=== PATIENT | male | born 1990 ===

== ENCOUNTER 2024-12-04 16:56 | Emergency (ER) | payer OTHER ==
[~2024-12-04] VITALS: Ht 177.8 cm; Wt 99.8 kg
[2024-12-04] MEDS ORDERED: ChlordiazePOXIDE 25 MG Cap PO ONE (18:20)
[2024-12-04] MEDS ORDERED: CHLO25 PO (18:24)
== END 2024-12-04 18:37 | disposition home or self-care (01) ==
LOC: ER 16:56
DX: F10.139 Alcohol abuse with withdrawal, unspecified (principal); Z79.899 Other long term (current) drug therapy
CPT/HCPCS: 99284; A9270

== ENCOUNTER 2025-09-10 14:29 | Inpatient (IN) | payer OTHER ==
[~2025-09-10] VITALS: Ht 177.8 cm; Wt 92.2 kg
[~2025-09-10 14:29] MED LIST: CHLO25 PO
[2025-09-10 15:57] LABS: BASOPHILS ABSOLUTE AUTO 0.06 K/mm3 (0.00-0.23); BASOPHILS PERCENT AUTO 1 % (0-2); EOSINOPHILS ABSOLUTE AUTO 0.10 K/mm3 (0.00-0.68); EOSINOPHILS PERCENT AUTO 2 % (0-6); Hematocrit 20.4 % (37.0-53.0); Hemoglobin 7.5 g/dL (13.5-17.5); IMMATURE GRAN ABSOLUTE AUTO 0.13 K/mm3 (0.00-0.10); IMMATURE GRAN PERCENT AUTO 2 % (0-1); LYMPHOCYTES ABSOLUTE AUTO 0.66 K/mm3 (0.84-5.20); LYMPHOCYTES PERCENT AUTO 10 % (21-46); MONOCYTES ABSOLUTE AUTO 0.62 K/mm3 (0.16-1.47); MONOCYTES PERCENT AUTO 10 % (4-13); Mean Corpuscular HGB Conc 36.8 g/dL (31.5-36.5); Mean Corpuscular Volume 106 fL (80-100); NEUTROPHILS ABSOLUTE AUTO 4.95 K/mm3 (1.96-9.15); NEUTROPHILS PERCENT AUTO 76 % (41-73); NRBC ABSOLUTE 0.03 K/mm3 (0.00-0.02); NRBC Auto 0.5 /100 WBC (0.0-0.2); Platelet Count 76 K/mm3 (150-400); RDW Coefficient Variation 16.2 % (11.7-14.2); RDW Standard Deviation 62.4 fL (35.1-46.3)
[2025-09-10 16:27] LABS: Prothrombin Time Results 20.5 Sec (9.7-11.5)
[2025-09-10 17:22] LABS: Alanine Aminotransfer (ALT/SGP 26.0 U/L (12-78); Albumin, Blood 2.0 g/dL (3.4-5.0); Albumin/Globulin Ratio 0.4 (0.8-1.8); Anion Gap 9.0 mmol/L (3-11); Aspartate Aminotrans (AST/SGOT 109.0 U/L (12-37); Bilirubin, Total 34.8 mg/dL (0.1-1.0); Blood Urea Nitrogen 13.0 mg/dL (8-24); CO2, Blood 27.0 mmol/L (21-32); Calcium, Blood 7.9 mg/dL (8.5-10.1); Chloride, Blood 94.0 mmol/L (98-108); Creatinine, Blood 0.79 mg/dL (0.60-1.20); Globulin, Blood 4.8 g/dL (2.2-4.0); Glucose, Blood 98.0 mg/dL (70-99); Potassium, Blood 2.9 mmol/L (3.5-5.5); Sodium, Blood 127.0 mmol/L (136-145); Total Protein, Blood 6.8 g/dL (6.4-8.2)
[2025-09-10] MEDS ORDERED: Ondansetron HCl 2 MG / ML 2ML Vial IV PRN (19:30)
[2025-09-10] MEDS ORDERED: FLU VACC TS2025-26(6MOS UP)/PF 45 MCG/0.5 ML SYRINGE IM SCH (19:30)
[2025-09-10] MEDS ORDERED: NS 1,000 ML IV SCH (20:20)
[2025-09-10] MEDS ORDERED: LORazepam 2 MG/ML 1ML Injection IV PRN (20:25)
--- NOTE | 2025-09-10 20:50 | NUR ---
TOOK REPORT FROM ED RN @ 2044.
[2025-09-10 21:01] LABS: Ferritin, Serum 1168.0 ng/mL (26-388); Magnesium, Blood 1.8 mg/dL (1.6-2.4); Total Iron Binding Capacity 95.0 ug/dL (250-450)
[2025-09-10 21:14] VITALS: BP 111/62
[2025-09-11] VITALS (10 sets, daily range): BP systolic 110–126; BP diastolic 51–69
[2025-09-11 04:43] LABS: BASOPHILS ABSOLUTE AUTO 0.06 K/mm3 (0.00-0.23); BASOPHILS PERCENT AUTO 1 % (0-2); EOSINOPHILS ABSOLUTE AUTO 0.11 K/mm3 (0.00-0.68); EOSINOPHILS PERCENT AUTO 2 % (0-6); Hematocrit 18.9 % (37.0-53.0); Hemoglobin 6.8 g/dL (13.5-17.5); IMMATURE GRAN ABSOLUTE AUTO 0.07 K/mm3 (0.00-0.10); IMMATURE GRAN PERCENT AUTO 1 % (0-1); LYMPHOCYTES ABSOLUTE AUTO 0.62 K/mm3 (0.84-5.20); LYMPHOCYTES PERCENT AUTO 13 % (21-46); MONOCYTES ABSOLUTE AUTO 0.58 K/mm3 (0.16-1.47); MONOCYTES PERCENT AUTO 12 % (4-13); Mean Corpuscular HGB Conc 36.0 g/dL (31.5-36.5); Mean Corpuscular Volume 108 fL (80-100); NEUTROPHILS ABSOLUTE AUTO 3.43 K/mm3 (1.96-9.15); NEUTROPHILS PERCENT AUTO 71 % (41-73); NRBC ABSOLUTE 0.02 K/mm3 (0.00-0.02); NRBC Auto 0.4 /100 WBC (0.0-0.2); Platelet Count 76 K/mm3 (150-400); RDW Coefficient Variation 16.3 % (11.7-14.2); RDW Standard Deviation 63.7 fL (35.1-46.3)
[2025-09-11 04:53] LABS: Prothrombin Time Results 19.3 Sec (9.7-11.5)
--- NOTE | 2025-09-11 05:15 | NUR ---
PT HGB 6.8 THIS AM. HOSPITALIST NOTIFIED AND ORDER FOR 1 UNIT PRBC ORDERED AND HOSPITALIST COMING TO UNIT TO SIGN BLOOD CONSENT FORM WITH PT.
[2025-09-11 05:27] LABS: Magnesium, Blood 1.7 mg/dL (1.6-2.4)
[2025-09-11] MEDS ORDERED: NS 500 ML IV SCH (05:35)
--- NOTE | 2025-09-11 05:46 | NUR ---
SHIFT SUMMARY NOC PT A/O X 4. PLEASANT AND COOPERATIVE WITH CARE. VSS. ADMIT FOR ALCOHOLIC CIRROHSIS AND WITHDRAWAL, CIWA 2 FOR NOTED BUE TREMORS. PT REPORTS LAST DRINK WAS 09/09/25 AND DRINKS 7-8 BEERS PER NIGHT SINCE IN TEENS. PT VERY JAUNDICED IN APPEARENCE WITH SCLERA EXTREMELY YELLOW NOTED IN APPEARANCE. PT POSTASSIUM 2.9 AND SODIUM 127 YESTERDAY WITH CMP PENDING THIS AM. HBG 6.8 THIS AM,HOSPITALIST NOTIFIED AND 1 UNIT PRBC ORDERED TO TRANSFUSE. PT HAS IVF INFUSING PER EMAR. PT CURRENTLY RESTING WITH BED IN LOWEST POSITION, AND CALL LIGHT WITHIN REACH.
[2025-09-11 05:59] LABS: Alanine Aminotransfer (ALT/SGP 23.0 U/L (12-78); Albumin, Blood 1.8 g/dL (3.4-5.0); Albumin/Globulin Ratio 0.4 (0.8-1.8); Anion Gap 9.0 mmol/L (3-11); Aspartate Aminotrans (AST/SGOT 88.0 U/L (12-37); Bilirubin, Total 30.0 mg/dL (0.1-1.0); Blood Urea Nitrogen 13.0 mg/dL (8-24); CO2, Blood 27.0 mmol/L (21-32); Calcium, Blood 7.2 mg/dL (8.5-10.1); Chloride, Blood 95.0 mmol/L (98-108); Creatinine, Blood 0.82 mg/dL (0.60-1.20); Globulin, Blood 4.3 g/dL (2.2-4.0); Glucose, Blood 88.0 mg/dL (70-99); Potassium, Blood 2.6 mmol/L (3.5-5.5); Sodium, Blood 128.0 mmol/L (136-145); Total Protein, Blood 6.1 g/dL (6.4-8.2)
--- NOTE | 2025-09-11 06:40 | NUR ---
PT POTASSIUM 2.6 THIS AM, HOSPITALIST NOTIFIED AND DAY MD HAD JUST PUT ORDER IN FOR 40 MEQ KCL PO X 1, AND HOSPITALIST ORDERED SECOND DOSE OF 40 MEQ KCL PO 4 HOURS FROM FIRST DOSE @ 1100.
--- NOTE | 2025-09-11 08:15 | NUR ---
PATIENT'S FATHER, LILO, CALLED FOR UPDATE. CONFIRMED FATHER IS ON [id number]. REQUESTED CALL BACK FROM BEDSIDE NURSE WITH UPDATE. BEDSIDE NURSE NOTIFIED. [phone].
[2025-09-11] MEDS ORDERED: Multivitamins 1 Tab PO SCH (09:00)
[2025-09-11] MEDS ORDERED: Folic Acid 1 MG TAB PO SCH (09:00)
[2025-09-11 12:56] LABS: Hematocrit 21.2 % (37.0-53.0); Hemoglobin 7.6 g/dL (13.5-17.5)
[2025-09-11] MEDS ORDERED: Potassium Chl 20MEQ/Water100ML 100 ML IV SCH (14:15)
[2025-09-11] MEDS ORDERED: Enoxaparin 40 MG/0.4 ML SYR SC SCH (15:00)
[2025-09-11] MEDS ORDERED: LORazepam 2 MG/ML 1ML Injection IV PRN ×3 (17:45→19:55)
--- NOTE | 2025-09-11 17:51 | NUR ---
SHIFT SUMMARY PATIENT IS A&OX2-3, DISORIENTED TO DATE AND PLACE. VERY UNSTEADY ON HIS FEET, AND HAS HAD EPISODE OF INCONTINENCE THIS SHIFT. USING THE BEDSIDE COMMODE AND SITTING TO URINATE. TREMORS AND ANXIETY AND DECREASING ORIENTATION WITH RISING CIWA SCORE UP TO 13. HE IS ON ROOM AIR AND DOES NOT HAVE TELE. PATIENT IS VERY STOIC AND THIS INTERFERES SOMEWHAT WITH SCORING A CIWA. NEW ORDERS FOR IV ATIVAN FOR CIWA SCORE OF 8-14 WERE PLACED BY THE DOC. HAVE BEEN MEDICATING PER EMAR. HE IS CURRENTLY LAYING IN BED, BED IS IN THE LOWEST POSITION, CALL LIGHT IN REACH.
[2025-09-11] MEDS ORDERED: LORazepam 2 MG/ML 1ML Injection IV ONE (19:50)
--- NOTE | 2025-09-11 20:04 | NUR ---
THIS RN NOTIFIED OF PT'S CIWA OF 15 AND TO REQUEST ORDER FOR TELE. PER PROVIDER, GIVE 2 MG IV ATIVAN NOW AND RECEIVED TELE ORDER.
--- NOTE | 2025-09-11 21:21 | NUR ---
PT WAS GIVEN CIWA AT BEDSIDE PT IS CONFUSED, TREMULOUS WITH AUDITORY AND TACTILE SENSATIONS. PT HAS UNCORRDINATED MOVEMENTS CIWA 12 1MG ATIVAN GIVEN
[2025-09-12] VITALS (8 sets, daily range): BP systolic 102–121; BP diastolic 54–76
[2025-09-12 04:51] LABS: BASOPHILS ABSOLUTE AUTO 0.11 K/mm3 (0.00-0.23); BASOPHILS PERCENT AUTO 2 % (0-2); EOSINOPHILS ABSOLUTE AUTO 0.19 K/mm3 (0.00-0.68); EOSINOPHILS PERCENT AUTO 4 % (0-6); Hematocrit 21.4 % (37.0-53.0); Hemoglobin 7.7 g/dL (13.5-17.5); IMMATURE GRAN ABSOLUTE AUTO 0.11 K/mm3 (0.00-0.10); IMMATURE GRAN PERCENT AUTO 2 % (0-1); LYMPHOCYTES ABSOLUTE AUTO 0.98 K/mm3 (0.84-5.20); LYMPHOCYTES PERCENT AUTO 20 % (21-46); MONOCYTES ABSOLUTE AUTO 0.52 K/mm3 (0.16-1.47); MONOCYTES PERCENT AUTO 10 % (4-13); Mean Corpuscular HGB Conc 36.0 g/dL (31.5-36.5); Mean Corpuscular Volume 108 fL (80-100); NEUTROPHILS ABSOLUTE AUTO 3.12 K/mm3 (1.96-9.15); NEUTROPHILS PERCENT AUTO 62 % (41-73); NRBC ABSOLUTE 0.00 K/mm3 (0.00-0.02); NRBC Auto 0.0 /100 WBC (0.0-0.2); Platelet Count 87 K/mm3 (150-400); RDW Coefficient Variation 18.1 % (11.7-14.2); RDW Standard Deviation 69.3 fL (35.1-46.3)
[2025-09-12 05:17] LABS: Magnesium, Blood 1.6 mg/dL (1.6-2.4)
[2025-09-12 05:57] LABS: Alanine Aminotransfer (ALT/SGP 22.0 U/L (12-78); Albumin, Blood 1.9 g/dL (3.4-5.0); Anion Gap 8.0 mmol/L (3-11); Aspartate Aminotrans (AST/SGOT 79.0 U/L (12-37); Blood Urea Nitrogen 11.0 mg/dL (8-24); CO2, Blood 24.0 mmol/L (21-32); Calcium, Blood 7.7 mg/dL (8.5-10.1); Chloride, Blood 103.0 mmol/L (98-108); Creatinine, Blood 0.81 mg/dL (0.60-1.20); Glucose, Blood 78.0 mg/dL (70-99); Potassium, Blood 3.7 mmol/L (3.5-5.5); Sodium, Blood 131.0 mmol/L (136-145)
[2025-09-12 06:00] LABS: Albumin/Globulin Ratio 0.4 (0.8-1.8); Bilirubin, Direct 25.2 mg/dL (0.0-0.3); Bilirubin, Indirect 5.4 mg/dL (0.1-0.7); Bilirubin, Total 30.6 mg/dL (0.1-1.0); Globulin, Blood 4.4 g/dL (2.2-4.0); Phosphorus, Blood 0.8 mg/dL (2.5-4.9); Total Protein, Blood 6.3 g/dL (6.4-8.2)
--- NOTE | 2025-09-12 06:27 | NUR ---
SHIFT SUMMARY PT A&OX2-3, CONFUSED, IMPULSIVE, HALLUCINATING, AND UNSTEADY GAIT. CIWA 15 AT BEGINNING OF THE SHIFT. CIWA REMAINS NOW AT AN 8. TELE IN PLACE, PT IN SINUS TACH T/O SHIFT. PT HAD CRITICAL PHOS LAB OF 0.8. THIS RN NOTIFIED DR. WEBER. PROVIDER TO PUT IN ORDER. K LAB AND HGB IMPROVED. CALL LIGHT WITHIN REACH AND BED ALARM ON.
[2025-09-12] MEDS ORDERED: Potassium Phosphate Dibasic 30 MM in Dextrose 5% 500 ML IV STA (06:34)
[2025-09-12] MEDS ORDERED: Folic Acid 1 MG TAB PO SCH (09:00)
[2025-09-12 15:22] LABS: Albumin, Blood 1.7 g/dL (3.4-5.0); Anion Gap 12 mmol/L (3-11); Blood Urea Nitrogen 12 mg/dL (8-24); CO2, Blood 23 mmol/L (21-32); Calcium, Blood 7.7 mg/dL (8.5-10.1); Chloride, Blood 101 mmol/L (98-108); Creatinine, Blood 0.91 mg/dL (0.60-1.20); Glucose, Blood 97 mg/dL (70-99); Phosphorus, Blood 2.7 mg/dL (2.5-4.9); Potassium, Blood 3.6 mmol/L (3.5-5.5); Sodium, Blood 132 mmol/L (136-145)
--- NOTE | 2025-09-12 17:41 | NUR ---
SHIFT SUMMARY PATIENT IS A&OX2-3, UNABLE TO STATE HIS BIRTHDAY TO THE NURSE THIS SHIFT. HE IS USING THE URINAL SITTING ON THE SIDE OF THE BED, BUT HE IS IMPULSIVE AND INSISTENT ON BEING INDEPENDENT, HE IS A FALL RISK, VERY UNSTEADY ON HIS FEET. HE IS ON ROOM AIR. TELE WITH SINUS TACHY AT 109, REPORTED T0 THIS RN BY ОЛЕГ YANG. CONTINUE TO MEDICATED FOR CIWA UP TO 15 THIS SHIFT WITH 3MG IV ATIVAN. PATIENT CONTINUES TO DENY TACTILE, OR AUDITORY OF VISUAL HALLUCINATIONS. FAMILY HAS BEEN BY TODAY AND CHW GAVE RESOURCES FOR INPATIENT TREATMENT PROGRAMS. FAMILY CURRENTLY IN THE ROOM, BED IS LOW, CALL LIGHT IS WITHIN REACH.
[2025-09-13 04:55] VITALS: BP 105/60
[2025-09-13 04:56] LABS: BASOPHILS ABSOLUTE AUTO 0.13 K/mm3 (0.00-0.23); BASOPHILS PERCENT AUTO 2 % (0-2); EOSINOPHILS ABSOLUTE AUTO 0.20 K/mm3 (0.00-0.68); EOSINOPHILS PERCENT AUTO 4 % (0-6); Hematocrit 22.1 % (37.0-53.0); Hemoglobin 8.0 g/dL (13.5-17.5); IMMATURE GRAN ABSOLUTE AUTO 0.10 K/mm3 (0.00-0.10); IMMATURE GRAN PERCENT AUTO 2 % (0-1); LYMPHOCYTES ABSOLUTE AUTO 0.97 K/mm3 (0.84-5.20); LYMPHOCYTES PERCENT AUTO 17 % (21-46); MONOCYTES ABSOLUTE AUTO 0.69 K/mm3 (0.16-1.47); MONOCYTES PERCENT AUTO 12 % (4-13); Mean Corpuscular HGB Conc 36.2 g/dL (31.5-36.5); Mean Corpuscular Volume 107 fL (80-100); NEUTROPHILS ABSOLUTE AUTO 3.67 K/mm3 (1.96-9.15); NEUTROPHILS PERCENT AUTO 64 % (41-73); NRBC ABSOLUTE 0.03 K/mm3 (0.00-0.02); NRBC Auto 0.5 /100 WBC (0.0-0.2); Platelet Count 101 K/mm3 (150-400); RDW Coefficient Variation 18.1 % (11.7-14.2); RDW Standard Deviation 69.0 fL (35.1-46.3)
[2025-09-13 05:27] LABS: Magnesium, Blood 1.7 mg/dL (1.6-2.4)
[2025-09-13 05:31] LABS: Alanine Aminotransfer (ALT/SGP 23.0 U/L (12-78); Albumin, Blood 1.8 g/dL (3.4-5.0); Albumin/Globulin Ratio 0.4 (0.8-1.8); Anion Gap 9.0 mmol/L (3-11); Aspartate Aminotrans (AST/SGOT 79.0 U/L (12-37); Bilirubin, Total 30.2 mg/dL (0.1-1.0); Blood Urea Nitrogen 11.0 mg/dL (8-24); CO2, Blood 22.0 mmol/L (21-32); Calcium, Blood 7.9 mg/dL (8.5-10.1); Chloride, Blood 102.0 mmol/L (98-108); Creatinine, Blood 0.92 mg/dL (0.60-1.20); Globulin, Blood 4.3 g/dL (2.2-4.0); Glucose, Blood 85.0 mg/dL (70-99); Phosphorus, Blood 2.0 mg/dL (2.5-4.9); Potassium, Blood 3.3 mmol/L (3.5-5.5); Sodium, Blood 130.0 mmol/L (136-145); Total Protein, Blood 6.1 g/dL (6.4-8.2)
--- NOTE | 2025-09-13 05:43 | NUR ---
SHIFT SUMMARY PATIENT IS ALERT AND ORIENTED TO SELF. PATIENT HAS HAD NO ACUTE EVENTS THIS SHIFT. VITAL SIGNS REVIEWED. PATIENT HAS BEEN MEDICATED FOR ANXIETY AND WITHDRAWALS. CIWAS HAVE REMAINED MANAGABLE WITH MEDICATION. PATIENT HAS HAD NO COMPLAINTS OF PAIN, SOB, OR NAUSE THIS SHIFT. BED IN LOCKED AND LOWEST POSITION. SEIZURE PADS IN PLACE FOR SAFETY. CALL LIGHT IN PLACE.
[2025-09-13 07:46] VITALS: BP 104/58
[2025-09-13 11:49] VITALS: BP 110/64
[2025-09-13 15:10] VITALS: BP 110/67
--- NOTE | 2025-09-13 17:03 | NUR ---
SUMMARY- AAOX1-2 THIS SHIFT. PT IS IMPROVED THIS SHIFT COMPARED TO THE PAST TWO DAYS SATURDAY AND SATURDAY. PT HAS BEEN LESS CONFUSED AND LESS ANXIOUS. PT HAS REQUIRED LESS ATIVAN WELL. PT IS ORIENTED TO SELF AND SOMETIMES PALCE. PT IS ALSO ORIENTED TO FAMILY. PT IS A X1-2 ASSIST TO THE BSC/CHAIR. STEWART VASQUEZ VISITED THE PT AND HIS PARENTS THIS SHIFT. PT IS ON RA. PT DENIES ANY PAIN THIS SHIFT. NO ACUTE EVENTS THIS SHIFT. PT IS EATING 20-50% OF HIS MEALS NOW AND DRINKING MINIMALLY.
[2025-09-13 23:59] VITALS: BP 115/56
[2025-09-14 03:54] VITALS: BP 105/56
[2025-09-14 05:47] LABS: BASOPHILS ABSOLUTE AUTO 0.11 K/mm3 (0.00-0.23); BASOPHILS PERCENT AUTO 2 % (0-2); EOSINOPHILS ABSOLUTE AUTO 0.15 K/mm3 (0.00-0.68); EOSINOPHILS PERCENT AUTO 3 % (0-6); Hematocrit 23.2 % (37.0-53.0); Hemoglobin 8.4 g/dL (13.5-17.5); IMMATURE GRAN ABSOLUTE AUTO 0.10 K/mm3 (0.00-0.10); IMMATURE GRAN PERCENT AUTO 2 % (0-1); LYMPHOCYTES ABSOLUTE AUTO 0.73 K/mm3 (0.84-5.20); LYMPHOCYTES PERCENT AUTO 13 % (21-46); MONOCYTES ABSOLUTE AUTO 0.55 K/mm3 (0.16-1.47); MONOCYTES PERCENT AUTO 10 % (4-13); Mean Corpuscular HGB Conc 36.2 g/dL (31.5-36.5); Mean Corpuscular Volume 107 fL (80-100); NEUTROPHILS ABSOLUTE AUTO 3.93 K/mm3 (1.96-9.15); NEUTROPHILS PERCENT AUTO 71 % (41-73); NRBC ABSOLUTE 0.00 K/mm3 (0.00-0.02); NRBC Auto 0.0 /100 WBC (0.0-0.2); Platelet Count 118 K/mm3 (150-400); RDW Coefficient Variation 18.5 % (11.7-14.2); RDW Standard Deviation 70.9 fL (35.1-46.3)
--- NOTE | 2025-09-14 06:05 | NUR ---
SHIFT SUMMARY A&OX2-3, SOME CLEARING OF MENTATION IN EARLY AM. PT HAS SLOW RESPONSES, MUMBLED SPEECH. CIWAS AVERAGE AROUND 9, MEDICATED PER ETOH WITHDRAWAL PROTOCOL. PATENT 20G IV IN RAC. HAS NOT REQUIRED ANY FURTHER TRANSFUSION. PLAN ONCE PT IS STABLE FOR 30-DAY INPT REHAB WITH [facility] PER SOCIAL WORK. REMAINS SOMEWHAT IMPULSIVE WITH INTERMITTENT BED EXITING AND 1 EPISODE OF URINATING ON FLOOR. REDIRECTABLE AND COOPERATIVE WITH CARE. PT TOLERATING PO WELL, EATING AND DRINKING. TELEMETRY: SR TO ST 90S-100S. 2-PERSON ASSIST TO STAND AT BEDSIDE FOR URINAL OR BSC USE.
[2025-09-14 06:10] LABS: Anion Gap 11.0 mmol/L (3-11); Blood Urea Nitrogen 11.0 mg/dL (8-24); CO2, Blood 22.0 mmol/L (21-32); Calcium, Blood 7.9 mg/dL (8.5-10.1); Chloride, Blood 100.0 mmol/L (98-108); Creatinine, Blood 1.06 mg/dL (0.60-1.20); Glucose, Blood 116.0 mg/dL (70-99); Magnesium, Blood 1.6 mg/dL (1.6-2.4); Phosphorus, Blood 2.6 mg/dL (2.5-4.9); Potassium, Blood 3.0 mmol/L (3.5-5.5); Sodium, Blood 130.0 mmol/L (136-145)
[2025-09-14 07:28] VITALS: BP 123/64
[2025-09-14 11:14] VITALS: BP 118/55
--- NOTE | 2025-09-14 11:22 | NUR ---
PATIENT HAS BEEN ASLEEP SINCE BEGINING OF SHIFT, NOT WAKING UP ENOUGH TO SAFELY GIVE MEDICATOINS.
[2025-09-14 15:03] VITALS: BP 113/60
--- NOTE | 2025-09-14 18:34 | NUR ---
END OF SHIFT NOTE PATIENT IMPULSIVE AND GETTING UP TO USE THE URINAL WITHOUT USING CALL LIGHT. CALM AND AGREEABLE WITH CARE FOR SHIFT. CIWA DONE X3 TODAY. MILD ANXIETY AND TREMORS TODAY. PATIENT EDUCATED AGAIN ABOUT CALL LIGHT. DR PATE IN TO SEE PATIENT AND FAMILY, PLAN FOR SNIF AND HOPEFUL FOR DRY ROASTER REHAB IF FAMILY CAN FIND A LOCATION NEAR THEM ([facility]). PATIENT SLEPT MOST OF THE MORNING, TOOK MEDICATION WHOLE WITH WATER, ATE LUNCH AND DINNER. A FEW BED/GOWN CHANGES DUE TO URINE SOILING. URINE VERY DARK IN COLOR. PATIENT REMAINS YELLOW TONED. NO OTHER CONCERNS FOR THIS SHIFT.
[2025-09-14 19:49] VITALS: BP 114/61
[2025-09-14 23:49] VITALS: BP 125/65
[2025-09-15 03:27] VITALS: BP 119/59
[2025-09-15 04:45] LABS: BASOPHILS ABSOLUTE AUTO 0.11 K/mm3 (0.00-0.23); BASOPHILS PERCENT AUTO 2 % (0-2); EOSINOPHILS ABSOLUTE AUTO 0.14 K/mm3 (0.00-0.68); EOSINOPHILS PERCENT AUTO 3 % (0-6); Hematocrit 22.7 % (37.0-53.0); Hemoglobin 8.2 g/dL (13.5-17.5); IMMATURE GRAN ABSOLUTE AUTO 0.09 K/mm3 (0.00-0.10); IMMATURE GRAN PERCENT AUTO 2 % (0-1); LYMPHOCYTES ABSOLUTE AUTO 0.91 K/mm3 (0.84-5.20); LYMPHOCYTES PERCENT AUTO 17 % (21-46); MONOCYTES ABSOLUTE AUTO 0.69 K/mm3 (0.16-1.47); MONOCYTES PERCENT AUTO 13 % (4-13); Mean Corpuscular HGB Conc 36.1 g/dL (31.5-36.5); Mean Corpuscular Volume 109 fL (80-100); NEUTROPHILS ABSOLUTE AUTO 3.48 K/mm3 (1.96-9.15); NEUTROPHILS PERCENT AUTO 64 % (41-73); NRBC ABSOLUTE 0.02 K/mm3 (0.00-0.02); NRBC Auto 0.4 /100 WBC (0.0-0.2); Platelet Count 124 K/mm3 (150-400); RDW Coefficient Variation 18.2 % (11.7-14.2); RDW Standard Deviation 72.1 fL (35.1-46.3)
--- NOTE | 2025-09-15 05:17 | NUR ---
SHIFT SUMMARY ORIENTATION IMPROVED FROM A&OX2 TO A&OX3 TO SELF, SITUATION, AND PERSON. KNOWS YEAR, BUT NOT MONTH. DECREASED SOMNOLENCE, AND INCREASED ABILITY TO VERBALLY COMMUNICATE WITH STAFF THIS EVENING. EATING AND DRINKING WELL. IMPULSIVITY TO BED EXIT TO USE RESTROOM MUCH DECREASED, THOUGH STILL PRESENT. PASSED BM 10.21.25 WITH 2 PERSON ASSIST TO BATHROOM USING GAIT BELT. CONTINENT OF URINE AND STOOL TODAY. NOT REQUIRING ANY FURTHER PRBC TRANSFUSION. HAS OPTION FOR INPT REHAB AT [facility] PER [employer] EMPLOYEE NOTE, THOUGH PARENTS WANTING TO EXPLORE POSS. INPT ETOH REHAB CLOSER TO WOOD. REGARDLESS PT IS ALSO REQUIRING HOUSING RESOURCE SINCE HE WAS UNHOUSED PRIOR TO ADMIT. LOCAL SNF LIKELY AN OPTION BY THIS THURS. PATENT IV IN RAC. CIWA RANGES FROM 2-8 THIS EVENING, MEDICATED X1 FOR CIWA OF 8. REMAINS NSR ON TELEMETRY @ 80 BPM.
[2025-09-15 05:25] LABS: Alanine Aminotransfer (ALT/SGP 24.0 U/L (12-78); Albumin, Blood 1.8 g/dL (3.4-5.0); Albumin/Globulin Ratio 0.4 (0.8-1.8); Anion Gap 8.0 mmol/L (3-11); Aspartate Aminotrans (AST/SGOT 71.0 U/L (12-37); Bilirubin, Total 32.1 mg/dL (0.1-1.0); Blood Urea Nitrogen 11.0 mg/dL (8-24); CO2, Blood 26.0 mmol/L (21-32); Calcium, Blood 8.1 mg/dL (8.5-10.1); Chloride, Blood 98.0 mmol/L (98-108); Creatinine, Blood 1.14 mg/dL (0.60-1.20); Globulin, Blood 4.6 g/dL (2.2-4.0); Glucose, Blood 94.0 mg/dL (70-99); Potassium, Blood 3.6 mmol/L (3.5-5.5); Sodium, Blood 128.0 mmol/L (136-145); Total Protein, Blood 6.4 g/dL (6.4-8.2)
[2025-09-15 07:04] LABS: Albumin, Blood 1.8 g/dL (3.4-5.0); Anion Gap 11 mmol/L (3-11); Blood Urea Nitrogen 12 mg/dL (8-24); CO2, Blood 23 mmol/L (21-32); Calcium, Blood 7.8 mg/dL (8.5-10.1); Chloride, Blood 99 mmol/L (98-108); Creatinine, Blood 1.13 mg/dL (0.60-1.20); Glucose, Blood 90 mg/dL (70-99); Phosphorus, Blood 2.0 mg/dL (2.5-4.9); Potassium, Blood 3.6 mmol/L (3.5-5.5); Sodium, Blood 129 mmol/L (136-145)
[2025-09-15 07:42] VITALS: BP 119/61
[2025-09-15] MEDS ORDERED: Mag Sulfate 1 GM/D5% 100ML 100 ML IV STA (09:00)
[2025-09-15 09:38] LABS: HEPATITIS A ANTIBODY, IGM Negative (Negative); HEPATITIS C AB CIA INTERP Negative (Negative); HEPATITIS C ANTIBODY CIA INDEX 0.06 IV
[2025-09-15 11:12] VITALS: BP 112/60
--- NOTE | 2025-09-15 14:37 | NUR ---
ATTEMPTED TO CALL DR ANGEL, TO INFORM HER OF PATIENTS DENTAL ABSCESS ON UPPER LEFT SIDE
[2025-09-15 15:47] VITALS: BP 113/57
--- NOTE | 2025-09-15 15:59 | NUR ---
PATIENT A/OX3 THIS SHIFT, QUIET AND WITHDRAWN. CIWA SCORE OF 5-8 THIS SHIFT, 1MG ATIVAN GIVEN THIS AM TO TREAT. PATIENT UP WALKING WITH 1PA AND FWW MUCH BETTER TODAY. CONTINENT/INCONTINENT OF URINE. URINE REMAIN DARK ORANGE/YELLOW. LARGE BM THIS SHIFT. TOLERATING REGULAR DIET. LESS IMPULSIVE AND BETTER ABLE TO FOLLOW COMMANDS. PLAN IS FOR DC TO SNF AND PARENTS ARE LOOKING FOR INPATIENT REHAB [place]. DENTAL HYGIENIST SAW PATIENT TODAY AND PATIENT HAS R UPPER TOOTH ABCESS. WILL NOTIFY .
[2025-09-15 19:21] VITALS: BP 110/63
[2025-09-16 02:34] VITALS: BP 110/53
[2025-09-16 04:47] LABS: BASOPHILS ABSOLUTE AUTO 0.12 K/mm3 (0.00-0.23); BASOPHILS PERCENT AUTO 2 % (0-2); EOSINOPHILS ABSOLUTE AUTO 0.13 K/mm3 (0.00-0.68); EOSINOPHILS PERCENT AUTO 2 % (0-6); Hematocrit 25.0 % (37.0-53.0); Hemoglobin 8.9 g/dL (13.5-17.5); IMMATURE GRAN ABSOLUTE AUTO 0.08 K/mm3 (0.00-0.10); IMMATURE GRAN PERCENT AUTO 1 % (0-1); LYMPHOCYTES ABSOLUTE AUTO 0.99 K/mm3 (0.84-5.20); LYMPHOCYTES PERCENT AUTO 17 % (21-46); MONOCYTES ABSOLUTE AUTO 0.72 K/mm3 (0.16-1.47); MONOCYTES PERCENT AUTO 12 % (4-13); Mean Corpuscular HGB Conc 35.6 g/dL (31.5-36.5); Mean Corpuscular Volume 111 fL (80-100); NEUTROPHILS ABSOLUTE AUTO 3.75 K/mm3 (1.96-9.15); NEUTROPHILS PERCENT AUTO 65 % (41-73); NRBC ABSOLUTE 0.00 K/mm3 (0.00-0.02); NRBC Auto 0.0 /100 WBC (0.0-0.2); Platelet Count 115 K/mm3 (150-400); RDW Coefficient Variation 17.8 % (11.7-14.2); RDW Standard Deviation 71.7 fL (35.1-46.3)
--- NOTE | 2025-09-16 05:53 | NUR ---
SHIFT SUMMARY PT A&Ox2-3. PT REPORTS FEELING "MORE ALERT" THIS MORNING. PT IMPULSIVE, ONCE AT START OF SHIFT, AND REMINDED TO USE CALL LIGHT FOR NEEDS. PT WAS ABLE TO USE CALL LIGHT FOR THE REMAINDER OF THE NIGHT. PT APPEARED TO SLEEP MOST OF THE NIGHT SO CIWA's HAVE BEEN 1-4. PT WAS MEDICTAED FOR C/O ANXIETY PER EMAR. NO C/O PAIN. PT HAD SEVERAL LOOSE, PALE BM'S AT START OF SHIFT. VSS. BED ALARM ON. BED IN LOWEST POSITION AND CALL LIGHT IN REACH.
[2025-09-16 05:54] LABS: Alanine Aminotransfer (ALT/SGP 24.0 U/L (12-78); Albumin, Blood 1.8 g/dL (3.4-5.0); Albumin/Globulin Ratio 0.4 (0.8-1.8); Anion Gap 10.0 mmol/L (3-11); Aspartate Aminotrans (AST/SGOT 73.0 U/L (12-37); Bilirubin, Total 32.6 mg/dL (0.1-1.0); Blood Urea Nitrogen 15.0 mg/dL (8-24); CO2, Blood 23.0 mmol/L (21-32); Calcium, Blood 8.3 mg/dL (8.5-10.1); Chloride, Blood 98.0 mmol/L (98-108); Creatinine, Blood 1.33 mg/dL (0.60-1.20); Globulin, Blood 4.9 g/dL (2.2-4.0); Glucose, Blood 85.0 mg/dL (70-99); Potassium, Blood 3.8 mmol/L (3.5-5.5); Sodium, Blood 127.0 mmol/L (136-145); Total Protein, Blood 6.7 g/dL (6.4-8.2)
[2025-09-16] MEDS ORDERED: NS 500 ML IV ONE (07:00)
[2025-09-16 07:23] VITALS: BP 113/48
[2025-09-16] MEDS ORDERED: Mag Sulfate 1 GM/D5% 100ML 100 ML IV STA (09:07)
[2025-09-16 11:37] VITALS: BP 107/48
[2025-09-16 15:28] VITALS: BP 118/58
--- NOTE | 2025-09-16 17:44 | NUR ---
PATIENT A/OX3-4, WITHDRAWN AND SLOW TO RESPOND. CIWA SCORES OF 2-7 THIS SHIFT, ATIVAN GIVEN X1. URINE REMAINS DARK TEA COLORED, LOOST STOOLS THIS SHIFT. TOLERATING REGULAR DIET. TAKES PILLS WHOLE WITH WATER. UP WITH 1PA AND GB, BED ALARM SET FOR SAFETY. PATIENT BETTER AT USING CALL LIGHT TODAY. PLAN IS FOR SNF. SPOKE WITH PATIENTS FATHER TODAY AND HE WILL BE BACK [place]OWN ON SATURDAY. FAMILY LOOKING FOR INPATIENT REHAB FOR ETOH ABUSE TREATMENT.
[2025-09-16 19:30] VITALS: BP 115/58
[2025-09-17 04:24] VITALS: BP 131/64
[2025-09-17 04:56] LABS: BASOPHILS ABSOLUTE AUTO 0.13 K/mm3 (0.00-0.23); BASOPHILS PERCENT AUTO 2 % (0-2); EOSINOPHILS ABSOLUTE AUTO 0.18 K/mm3 (0.00-0.68); EOSINOPHILS PERCENT AUTO 3 % (0-6); Hematocrit 25.4 % (37.0-53.0); Hemoglobin 9.0 g/dL (13.5-17.5); IMMATURE GRAN ABSOLUTE AUTO 0.07 K/mm3 (0.00-0.10); IMMATURE GRAN PERCENT AUTO 1 % (0-1); LYMPHOCYTES ABSOLUTE AUTO 1.05 K/mm3 (0.84-5.20); LYMPHOCYTES PERCENT AUTO 16 % (21-46); MONOCYTES ABSOLUTE AUTO 0.78 K/mm3 (0.16-1.47); MONOCYTES PERCENT AUTO 12 % (4-13); Mean Corpuscular HGB Conc 35.4 g/dL (31.5-36.5); Mean Corpuscular Volume 110 fL (80-100); NEUTROPHILS ABSOLUTE AUTO 4.42 K/mm3 (1.96-9.15); NEUTROPHILS PERCENT AUTO 67 % (41-73); NRBC ABSOLUTE 0.00 K/mm3 (0.00-0.02); NRBC Auto 0.0 /100 WBC (0.0-0.2); Platelet Count 133 K/mm3 (150-400); RDW Coefficient Variation 17.1 % (11.7-14.2); RDW Standard Deviation 68.2 fL (35.1-46.3)
--- NOTE | 2025-09-17 05:07 | NUR ---
SHIFT SUMMARY PT A&Ox3. FLAT EFFECT. STILL SOME IMPULISIVNESS BUT ALSO ABLE TO USE THE CALL LIGHT THE MOJORITY OF THE TIME. BED ALARM ON. CIWAS'S HAVE RANGED FROM 3-5 DURING THE NIGHT. MEDICATED PER EMAR FOR C/O ANXIETY. PT HAD SEVERAL SOFT BM's. VSS. BED IN LOWEST POSITION AND CALL LIGHT IN REACH.
[2025-09-17 05:19] LABS: Anion Gap 12.0 mmol/L (3-11); Blood Urea Nitrogen 18.0 mg/dL (8-24); CO2, Blood 20.0 mmol/L (21-32); Calcium, Blood 8.0 mg/dL (8.5-10.1); Chloride, Blood 100.0 mmol/L (98-108); Creatinine, Blood 1.33 mg/dL (0.60-1.20); Glucose, Blood 82.0 mg/dL (70-99); Potassium, Blood 3.6 mmol/L (3.5-5.5); Sodium, Blood 128.0 mmol/L (136-145)
[2025-09-17] MEDS ORDERED: NS 500 ML IV SCH (07:00)
[2025-09-17 07:23] VITALS: BP 116/55
[2025-09-17 17:09] VITALS: BP 124/69
--- NOTE | 2025-09-17 17:20 | NUR ---
PT A/OX2-3. NOT ORIENTED TO CITY OR CURRENT DATE. PT CONTINUES TO BE IMPULSIVE. DOES NOT USE CALL LIGHT. BED ALARM IS ON DUE TO UNSTABLE GAIT. PT IS A 1PA W GB. CIWAS HAVE BEEN 4-5 TODAY. FAMILY TO BE PRESENT TOMORROW TO GO OVER PLACEMENT OPTIONS POST DISCHARGE. NO ACUTE NEEDS AT THIS TIME.
[2025-09-17 19:40] VITALS: BP 108/54
[2025-09-18] MEDS ORDERED: FentaNYL Citrate 50 MCG/ML 2 ML Injection IV PRN (00:35)
[2025-09-18 04:37] VITALS: BP 112/58
--- NOTE | 2025-09-18 04:42 | NUR ---
SHIFT SUMMARY: PATIENT HAS REMAINED RESTLESS DURING THIS SHIFT. PATIENT MEDICATED FOR PAIN PER EMAR, SEE FOR DETAILS. FENTANYL 50 MEQ Q4 PRN GIVEN X1 THIS SHIFT FOR COMPLAINTS OF LOWER BACK PAIN RATING 8-10. WHEN QUESTIONING PATIENT ON THIS, PATIENT VERBALIZED THIS TO BE CHRONIC. CIWA D/C PER TELEPHONE ORDER D/T BEING BELOW 8, X3 TIMES. PATIENT REORINETED TO [facility] CALL SYSTEM WHEN NEEDING TO USE RESTROOM. BED ALARM SET FOR SAFETY, IMPULSIVENESS, AND UNSTABLE GAIT WHEN AMBULATING. PLAN TO HAVE FAMILY MEETING LATER THIS DAY TO DISCUSS REHAB POTENTIAL. WILL CONTINUE TO MONITOR.
[2025-09-18 05:44] LABS: BASOPHILS ABSOLUTE AUTO 0.14 K/mm3 (0.00-0.23); BASOPHILS PERCENT AUTO 2 % (0-2); EOSINOPHILS ABSOLUTE AUTO 0.15 K/mm3 (0.00-0.68); EOSINOPHILS PERCENT AUTO 2 % (0-6); Hematocrit 23.5 % (37.0-53.0); Hemoglobin 8.4 g/dL (13.5-17.5); IMMATURE GRAN ABSOLUTE AUTO 0.07 K/mm3 (0.00-0.10); IMMATURE GRAN PERCENT AUTO 1 % (0-1); LYMPHOCYTES ABSOLUTE AUTO 0.92 K/mm3 (0.84-5.20); LYMPHOCYTES PERCENT AUTO 13 % (21-46); MONOCYTES ABSOLUTE AUTO 0.66 K/mm3 (0.16-1.47); MONOCYTES PERCENT AUTO 10 % (4-13); Mean Corpuscular HGB Conc 35.7 g/dL (31.5-36.5); Mean Corpuscular Volume 109 fL (80-100); NEUTROPHILS ABSOLUTE AUTO 4.99 K/mm3 (1.96-9.15); NEUTROPHILS PERCENT AUTO 72 % (41-73); NRBC ABSOLUTE 0.00 K/mm3 (0.00-0.02); NRBC Auto 0.0 /100 WBC (0.0-0.2); Platelet Count 139 K/mm3 (150-400); RDW Coefficient Variation 16.4 % (11.7-14.2); RDW Standard Deviation 66.5 fL (35.1-46.3)
[2025-09-18 06:02] LABS: Albumin, Blood 1.6 g/dL (3.4-5.0); Anion Gap 12 mmol/L (3-11); Blood Urea Nitrogen 16 mg/dL (8-24); CO2, Blood 18 mmol/L (21-32); Calcium, Blood 7.7 mg/dL (8.5-10.1); Chloride, Blood 102 mmol/L (98-108); Creatinine, Blood 1.21 mg/dL (0.60-1.20); Glucose, Blood 86 mg/dL (70-99); Magnesium, Blood 2.1 mg/dL (1.6-2.4); Phosphorus, Blood 2.2 mg/dL (2.5-4.9); Potassium, Blood 3.9 mmol/L (3.5-5.5); Sodium, Blood 128 mmol/L (136-145)
[2025-09-18 07:27] VITALS: BP 131/68
[2025-09-18] MEDS ORDERED: Sodium Phosphate 15 MM in Dextrose 5% 500 ML IV ONE (08:00)
[2025-09-18] MEDS ORDERED: HYDHCL25 PO (11:06)
[2025-09-18] MEDS ORDERED: AMOCLA875 PO (11:10)
[2025-09-18] MEDS ORDERED: FOLI1 PO (11:11)
[2025-09-18] MEDS ORDERED: FURO20 PO (11:12)
[2025-09-18] MEDS ORDERED: POTA10T PO (11:12)
[2025-09-18] MEDS ORDERED: SPIR50 PO (11:13)
[2025-09-18] MEDS ORDERED: B-1100 M1 PO (11:13)
[2025-09-18 16:25] VITALS: BP 107/54
--- NOTE | 2025-09-18 18:39 | NUR ---
ASSUMED CARE OF PT. PT IS A/O X 2-3, PT IS WITHDRAWN AND HAS FLAT AFFECT, ASSISTED TO BATHROOM AND PT IS WALKING MUCH BETTER, STABLE ON FEET. PT WAS ABLE TO AMB OUTSIDE ROOM AND INTO BATHROOM , WAS ALSO ABLE TO HANDLE HAVING IV POLE AND PROTECTED IV. PT FAMILY AT BEDSIDE NOW ASING TO SPEAK WITH MD AND HOPING PT WILL SOON BE ABLE TO LEAVE AND ENTER RECOVERY. PT WILL NOT ENGAGE IN CONVERSATION ONLY ANSWERING YES OR NO, SO I AM UNSURE HOW WILLING PT IS TO COOPERATE WITH ANY TREATMENT. WILL ENC TO CONT THERAPY NEEDED.
[2025-09-18 20:07] VITALS: BP 120/60
--- NOTE | 2025-09-19 04:24 | NUR ---
SHIFT SUMMARY: PATIENT SLEPT MAJORITY OF THIS NIGHT WITH LITTLE INTERUPTIONS. HEART AND LUNGS WITHIN NORMAL PARAMETERS. PATIENT UP TO VOID FEW TIMES THIS NIGHT. PATIENT REMAINS A+O X3-4. NO NEW ACUTE CHANGES DURING THE NIGHT. PLAN TO D/C TO REHAB ONCE ESTABLISHED. PATIENT SLEEPING AT THIS TIME, BED IN LOWEST POSITION, CALL LIGHT WITHIN REACH.
[2025-09-19 05:11] VITALS: BP 119/60
[2025-09-19 05:58] LABS: BASOPHILS ABSOLUTE AUTO 0.13 K/mm3 (0.00-0.23); BASOPHILS PERCENT AUTO 2 % (0-2); EOSINOPHILS ABSOLUTE AUTO 0.18 K/mm3 (0.00-0.68); EOSINOPHILS PERCENT AUTO 3 % (0-6); Hematocrit 23.0 % (37.0-53.0); Hemoglobin 8.2 g/dL (13.5-17.5); IMMATURE GRAN ABSOLUTE AUTO 0.05 K/mm3 (0.00-0.10); IMMATURE GRAN PERCENT AUTO 1 % (0-1); LYMPHOCYTES ABSOLUTE AUTO 0.91 K/mm3 (0.84-5.20); LYMPHOCYTES PERCENT AUTO 13 % (21-46); MONOCYTES ABSOLUTE AUTO 0.65 K/mm3 (0.16-1.47); MONOCYTES PERCENT AUTO 9 % (4-13); Mean Corpuscular HGB Conc 35.7 g/dL (31.5-36.5); Mean Corpuscular Volume 110 fL (80-100); NEUTROPHILS ABSOLUTE AUTO 5.20 K/mm3 (1.96-9.15); NEUTROPHILS PERCENT AUTO 73 % (41-73); NRBC ABSOLUTE 0.00 K/mm3 (0.00-0.02); NRBC Auto 0.0 /100 WBC (0.0-0.2); Platelet Count 148 K/mm3 (150-400); RDW Coefficient Variation 16.2 % (11.7-14.2); RDW Standard Deviation 64.1 fL (35.1-46.3)
[2025-09-19 06:15] LABS: Albumin, Blood 1.6 g/dL (3.4-5.0); Anion Gap 12 mmol/L (3-11); Blood Urea Nitrogen 16 mg/dL (8-24); CO2, Blood 20 mmol/L (21-32); Calcium, Blood 7.8 mg/dL (8.5-10.1); Chloride, Blood 101 mmol/L (98-108); Creatinine, Blood 1.20 mg/dL (0.60-1.20); Glucose, Blood 86 mg/dL (70-99); Magnesium, Blood 2.0 mg/dL (1.6-2.4); Phosphorus, Blood 2.3 mg/dL (2.5-4.9); Potassium, Blood 3.5 mmol/L (3.5-5.5); Sodium, Blood 129 mmol/L (136-145)
[2025-09-19 07:25] VITALS: BP 102/52
--- NOTE | 2025-09-19 14:51 | NUR ---
PC callback. Entered room and pt was asleep. Spoke with Rn outside of room. It was decided that best plan of action at the moment was for PC to call pt's father. Call placed to Ramon. Space given for Ramon to reflect on son's life choices and challenges. Ramon thought it best to let pt sleep. Ramon and his discuss next plan of action. They will come back to the hospital today and call alcohol treatment facility in [place]. Pastoral chromosomal disorders counselor given and a supplication supplied for strength and encouragement. They voiced gratitude for the interventions. Call ended. Updated manager financial systems for the pt.
[2025-09-19 16:51] VITALS: BP 132/65
--- NOTE | 2025-09-19 17:49 | NUR ---
ASSUMED CARE UNEVENTFUL DAY FAMILY AT BEDSIDE SPEAKING WITH PT ABOUT POSSIBLE REHAB OPTIONS PT DID NOT WANT TO SPEAK ABOUT IT PER FAMILY. PLAN TO POSSIBLY DRIVE TO [facility] IN THE MORNING. PASTORAL CARE WAS CALLED TO PRAY WITH PT BUT PT WAS SLEEP. ASSIGNMENT EDITOR WAS ABLE TO SPEAK AND PRAY WE[facility] FAMILY. CALL LIGHT WITHIN REACH. MAKES NEEDS KNOWN. IND IN ROOM.
[2025-09-19 19:42] VITALS: BP 117/64
[2025-09-20 01:58] VITALS: BP 122/62
--- NOTE | 2025-09-20 04:46 | NUR ---
SHIFT SUMMARY: PATIENT HAS SLEPT SOUNDLY THROUGHOUT THIS SHIFT. PATIENT HAD COMPLAINTS OF LOWER BACK PN. TYLENOL ORDERED PER DR. WEBER. PATIENT WAS NOT MEDICATED FOR THIS D/T SLEEPING. MEDICATION RETURNED TO [place]. NO OTHER NEW OR ACUTE CHANGES DURING THIS SHIFT. PLAN FOR D/C TODAY 09/20/25. BED IN LOWEST POSITION, CALL LIGHT WITHIN REACH, NO NEEDS AT THIS TIME.
[2025-09-20 05:00] LABS: Anion Gap 11.0 mmol/L (3-11); Blood Urea Nitrogen 18.0 mg/dL (8-24); CO2, Blood 21.0 mmol/L (21-32); Calcium, Blood 8.1 mg/dL (8.5-10.1); Chloride, Blood 100.0 mmol/L (98-108); Creatinine, Blood 1.18 mg/dL (0.60-1.20); Glucose, Blood 91.0 mg/dL (70-99); Potassium, Blood 3.6 mmol/L (3.5-5.5); Sodium, Blood 128.0 mmol/L (136-145)
[2025-09-20 07:22] VITALS: BP 110/64
[2025-09-20 07:41] LABS: BASOPHILS ABSOLUTE AUTO 0.14 K/mm3 (0.00-0.23); BASOPHILS PERCENT AUTO 2 % (0-2); EOSINOPHILS ABSOLUTE AUTO 0.16 K/mm3 (0.00-0.68); EOSINOPHILS PERCENT AUTO 2 % (0-6); Hematocrit 22.5 % (37.0-53.0); Hemoglobin 8.1 g/dL (13.5-17.5); IMMATURE GRAN ABSOLUTE AUTO 0.08 K/mm3 (0.00-0.10); IMMATURE GRAN PERCENT AUTO 1 % (0-1); LYMPHOCYTES ABSOLUTE AUTO 0.99 K/mm3 (0.84-5.20); LYMPHOCYTES PERCENT AUTO 12 % (21-46); MONOCYTES ABSOLUTE AUTO 0.89 K/mm3 (0.16-1.47); MONOCYTES PERCENT AUTO 11 % (4-13); Mean Corpuscular HGB Conc 36.0 g/dL (31.5-36.5); Mean Corpuscular Volume 110 fL (80-100); NEUTROPHILS ABSOLUTE AUTO 6.24 K/mm3 (1.96-9.15); NEUTROPHILS PERCENT AUTO 74 % (41-73); NRBC ABSOLUTE 0.00 K/mm3 (0.00-0.02); NRBC Auto 0.0 /100 WBC (0.0-0.2); Platelet Count 155 K/mm3 (150-400); RDW Coefficient Variation 15.9 % (11.7-14.2); RDW Standard Deviation 64.8 fL (35.1-46.3)
[2025-09-20 15:08] VITALS: BP 128/65
[2025-09-20] MEDS ORDERED: HYDHCL25 PO (15:19)
[2025-09-20] MEDS ORDERED: GABA300 PO (15:19)
[2025-09-20] MEDS ORDERED: VISBIOME 112.51 EACH PO (15:20)
--- NOTE | 2025-09-20 17:04 | NUR ---
ASSUMED CARE OF PT PT TODAY IS DOING MUCH BETTER A/O X 4 AND IS ANTICIPATING GOING HOME OR TO REHAB THIS AFTERNOON, PT STATED HE WAS READY TO GO AND WOULD LIKE TO SPEAK WITH A COUPLE FACILITIES TO SEE WHICH ONE WOULD FIT HIM BETTER. MOTHER AND FATHER AT BEDSIDE HELPING WITH PLANNING AND STATED THEY WOULD BE TAKING HIM UP [place] THIS EVENING. PT SEEMS MORE AT EASE WITH CURRENT DECISION TO GO TO REHAB. AWAITING VERIFICATION.
--- NOTE | 2025-09-20 17:08 | NUR ---
SPOKE WITH FACILITY OVER THE PHONE, DIRECTED CASE MANEGMENT TO SPEAK WITH THEM AND WILL BE SENDING APPROPRIATE DOCUMENTATION NEED FOR PT ADMISSION ON SATURDAY AT 1PM
[2025-09-20] MEDS ORDERED: Lactobacil 2-S.Thermo-Bifido 1 1 Cap PO SCH (21:00)
== END 2025-09-20 17:20 | disposition home or self-care (01) | DRG 432 ==
LOC: ER 14:29 → MEDS 14:30 → EDPENDDIS 09-18 11:26 → ENPENDDIS 09-18 11:26 → MEDS 09-20 17:20
PROVIDERS: Family Medicine; Nurse Practitioner Acute Care; Student in an Organized Health Care Education/Training Program; ADMIT Student in an Organized Health Care Education/Training Program
PROC: 3E02340 Introduction of Influenza Vaccine into Muscle, Percutaneous Approach (ICD-10-PCS; 2025-09-10)
PROC: 30233N1 Transfusion of Nonautologous Red Blood Cells into Peripheral Vein, Percutaneous Approach (ICD-10-PCS; principal; 2025-09-11)
DX: K70.11 Alcoholic hepatitis with ascites (principal); G93.41 Metabolic encephalopathy; E87.1 Hypo-osmolality and hyponatremia; B18.1 Chronic viral hepatitis B without delta-agent; F10.239 Alcohol dependence with withdrawal, unspecified; E46 Unspecified protein-calorie malnutrition; E87.6 Hypokalemia; R74.01 Elevation of levels of liver transaminase levels; E88.09 Other disorders of plasma-protein metabolism, not elsewhere classified; D69.6 Thrombocytopenia, unspecified; D64.9 Anemia, unspecified; I45.81 Long QT syndrome; K80.20 Calculus of gallbladder without cholecystitis without obstruction; F41.9 Anxiety disorder, unspecified; R79.1 Abnormal coagulation profile; R74.8 Abnormal levels of other serum enzymes; F10.229 Alcohol dependence with intoxication, unspecified; K72.90 Hepatic failure, unspecified without coma; E83.39 Other disorders of phosphorus metabolism; K04.6 Periapical abscess with sinus; E83.42 Hypomagnesemia; Z68.28 Body mass index [BMI] 28.0-28.9, adult; Z23 Encounter for immunization; Z87.891 Personal history of nicotine dependence
CPT/HCPCS: 36415; 36430; 74177; 80048; 80053; 80069; 80074; 82140; 82248; 82607; 82728; 82746; 83540; 83550; 83690; 83735; 84100; 84132; 84484; 85014; 85018; 85025; 85610; 85730; 86850; 86900; 86901; 86923; 93005; 93010; 96374; 96375; 97116; 97162; 99285-25; A9270; G0378; J0612; J1650; J1938; J2060; J3010; J3475; J3480; J7030; J7040; J7050; J7060; P9016; Q9967